=== PATIENT | female | born 1995 | race Hispanic/Latino ===

== ENCOUNTER 2023-12-19 06:26 | Emergency (ER) | payer BC ==
[~2023-12-19] VITALS: Ht 157.5 cm; Wt 70.8 kg
[2023-12-19] MEDS: dexaMETHasone SOD PHOSPHATE 4 MG/ML 1ML VIAL IM ONE (07:24)
[2023-12-19] MEDS: 0.9%NACL 1000ML 1,000 ML IV ONE (07:38)
[2023-12-19 07:46] LABS: BASOPHILS # (AUTO) 0.08 K/uL (0.00-0.20); EOSINOPHILS # (AUTO) 0.55 K/uL (0.00-0.70); EOSINOPHILS % (AUTO) 7.2 % (0.0-8.0); HEMATOCRIT 38.9 % (36-48); IMMATURE GRANULOCYTE ABSOLUTE 0.02 K/uL (0-1); LYMPHOCYTES # (AUTO) 2.4 K/uL (1.0-4.8); LYMPHOCYTES % (AUTO) 31.9 % (21.0-51.0); MEAN CORPUSCULAR HEMOGLOBIN 26.6 pg (27.0-33.0); MEAN CORPUSCULAR HGB CONC 32.6 g/dL (32.0-36.0); MEAN CORPUSCULAR VOLUME 81.6 fL (79-99); MONOCYTES # (AUTO) 0.8 K/uL (0.1-1.0); MONOCYTES % (AUTO) 10.7 % (3.0-13.0); NEUTROPHILS # (AUTO) 3.8 K/uL (1.8-7.7); NEUTROPHILS % (AUTO) 48.9 % (40.0-77.0); PLATELET COUNT (AUTO) 295 K/uL (130-400); RED BLOOD CELL COUNT(AUTO) 4.77 MIL/uL (4.00-5.50); RED CELL DISTRIBUTION WIDTH 14.1 % (11.0-15.5); WHITE BLOOD COUNT (AUTO) 7.7 K/uL (4.8-10.8)
[2023-12-19 07:49] LABS: SARS-CoV-2, RNA, NAAT NEGATIVE SARS CoV-2 (NEGATIVE)
[2023-12-19 08:05] LABS: CREATININE 0.8 mg/dL (0.5-1.0); POTASSIUM 3.7 mmol/L (3.5-5.1)
[2023-12-19 08:15] LABS: RAPID GROUP A STREP positive (NEGATIVE)
[2023-12-19] MEDS ORDERED: AMOX1TAB16 PO (08:35)
[2023-12-19] MEDS ORDERED: FLUT16H NS (08:35)
[2023-12-19] MEDS ORDERED: LORA10TA7 PO (08:35)
[2023-12-19 08:37] VITALS: BP 120/79; PULSE 59; RESP 16; TEMP 97.5; O2SAT 99
== END 2023-12-19 08:49 | disposition home or self-care (01) ==
LOC: EDH 06:26
DX: J02.0 Streptococcal pharyngitis (principal); Z20.822 Contact with and (suspected) exposure to COVID-19
CPT/HCPCS: 99284; 96360; 87635; 80048; 85025; 87880; 81025; 36415; 96372; J1100; J7030